=== PATIENT | female | born 1985 | race Caucasian/White ===

== ENCOUNTER 2023-03-08 07:59 | Outpatient (CLI) | payer OTHER, SELFPAY | END 2023-03-08 08:00 | disposition home or self-care (01) | PROVIDERS: PCP Physician Assistant Medical; Visit Provider Physician Assistant Medical | DX: F32.A Depression, unspecified (principal); Z13.6 Encounter for screening for cardiovascular disorders; Z13.29 Encounter for screening for other suspected endocrine disorder; Z13.9 Encounter for screening, unspecified | CPT/HCPCS: 80053; 80061; 84443 ==

== ENCOUNTER 2025-04-13 09:11 | Outpatient (CLI) | payer OTHER, SELFPAY ==
--- NOTE | 2025-04-13 10:36 | P.ANES_ITS ---
Anesthesia Charges Start Date/Time Anesthesia Start Date: 04/13/25 Anesthesia Start Time: 10:10 Stop Date/Time Anesthesia Stop Date: 04/13/25 Anesthesia Stop Time: 10:35 Coding CPT Codes CPT Codes: NAHED LWR INTST NDSC NOS - [id number] ([id number]) P2 - PATIENT W/MILD SYST DISEASE, QK - PEST CONTROL TECHNICIAN 2-4 CNCRNT ANES PROC, QX - SCHOOL PHOTOGRAPHS DETAILER SVC W/ MD MED DIRECTION
--- NOTE | 2025-04-13 10:36 | W.ANESCHARGE ---
Anesthesia Charges Start Date/Time Anesthesia Start Date: 04/13/25 Anesthesia Start Time: 10:10 Stop Date/Time Anesthesia Stop Date: 04/13/25 Anesthesia Stop Time: 10:35 Coding CPT Codes CPT Codes: NAHED LWR INTST NDSC NOS - [id number] ([id number]) P2 - PATIENT W/MILD SYST DISEASE, QK - CAR SALESMAN 2-4 CNCRNT ANES PROC, QX - OUTREACH PROFESSIONAL SVC W/ MD MED DIRECTION
--- NOTE | 2025-04-13 10:55 | P.ANES_ITS ---
Anesthesia Charges Start Date/Time Anesthesia Start Date: 04/13/25 Anesthesia Start Time: 10:10 Stop Date/Time Anesthesia Stop Date: 04/13/25 Anesthesia Stop Time: 10:35 Coding CPT Codes CPT Codes: NAHED LWR INTST NDSC NOS - [id number] ([id number]) QK - PROPERTY INSURANCE CLAIMS EXAMINER 2-4 CNCRNT NAHED PROC, QX - CARTON WRAPPER SVC W/ MD MED DIRECTION, P2 - PATIENT W/MILD SYST DISEASE
--- NOTE | 2025-04-13 10:55 | W.ANESCHARGE ---
Anesthesia Charges Start Date/Time Anesthesia Start Date: 04/13/25 Anesthesia Start Time: 10:10 Stop Date/Time Anesthesia Stop Date: 04/13/25 Anesthesia Stop Time: 10:35 Coding CPT Codes CPT Codes: NAHED LWR INTST NDSC NOS - [id number] ([id number]) QK - CONVENTION PLANNER 2-4 CNCRNT NAHED PROC, QX - PRODUCTION EXPEDITER SVC W/ MD MED DIRECTION, P2 - PATIENT W/MILD SYST DISEASE
== END 2025-04-13 09:12 | disposition home or self-care (01) ==
LOC: OP CLINIC 09:12
PROVIDERS: PCP Physician Assistant Medical; Visit Provider Internal Medicine
DX: Z12.11 Encounter for screening for malignant neoplasm of colon (principal); D12.3 Benign neoplasm of transverse colon
CPT/HCPCS: 00811; 00812; 45380; 88305; J2704

== ENCOUNTER 2025-07-27 13:01 | Outpatient (CLI) | payer OTHER, SELFPAY ==
--- NOTE | 2025-07-27 13:40 | CRLHL7_ITS ---
For Patients: As a result of the Century Cures Act, medical imaging exams and procedure reports are released immediately into your electronic medical record. You may view this report before your referring provider. If you have questions, please contact your health care provider. INDICATION: BILATERAL SCREENING MAMMOGRAM, ASYMPTOMATIC 40 Y/O FEMALE COMPARISON: BASELINE TECHNIQUE: Digital mammogram in CC and MLO projections including computer-aided detection (CAD) and tomosynthesis. BREAST COMPOSITION: There are scattered areas of fibroglandular density. FINDINGS: No suspicious findings. ASSESSMENT: BI-RADS 1 Negative RECOMMENDATION: Annual screening mammogram. A lay language report of this examination will be provided to the patient. Dictated by: Jerrell Atkinson MD @ 07/28/2025 11:27:46 (Electronically Signed)
== END 2025-07-27 13:02 | disposition home or self-care (01) ==
LOC: MAMMO 13:03
PROVIDERS: PCP Physician Assistant Medical; Visit Provider Physician Assistant Medical
DX: Z12.31 Encounter for screening mammogram for malignant neoplasm of breast (principal)
CPT/HCPCS: 77063; 77067